=== PATIENT | female | born 1970 | race Caucasian/White ===

== ENCOUNTER → 2022-05-24 | Outpatient (CLI) | payer BC ==
--- NOTE | 2022-05-29 11:55 | MM ---
Reason for Exam: Screening (asymptomatic). Last mammogram was performed 1 year(s) and 2 month(s) ago. Patient History: Menarche at age 12. First Full-Term at age 23. Right ovary removed at age 47. Hysterectomy at age 39. Postmenopausal. Patient has history of breast feeding. Risk Values: Caryn 5 year model risk: 0.9%. NCI Lifetime model risk: 7.8%. Prior Study Comparison: 09/26/2010 Bilateral MG screening mammo w CAD - 2, [facility] [place]. 11/10/2011 Bilateral MG screening mammo w CAD - 2, [facility] [place]. 01/08/2013 Bilateral MG screening mammo w CAD - 2, [facility] [place]. 01/12/2014 Bilateral MG screening mammo w CAD - 2, [facility] [place]. 06/07/2015 Bilateral MG screening mammo w CAD - 2, [facility] [place] 07/17/2016 Bilateral MG screening mammo w CAD - 2, [facility] [place]. 10/02/2017 Bilateral MG screening mammo w CAD - 2, [facility] [place] 11/13/2018 Bilateral MG screening mammo w CAD - 2, [facility] [place]. 02/20/2020 Bilateral MG screening mammo w CAD - 2, [facility] [place]. 03/26/2021 Bilateral MG screening mammo w CAD - 2, [facility] [place]. Tissue Density: The breast tissue is heterogeneously dense. This may lower the sensitivity of mammography. Findings: Analyzed By CAD. Stable focal asymmetries within the upper outer right breast. Stable chronic nodularity within the posterior upper outer right breast. There is no suspicious group of microcalcifications or new suspicious mass in either breast. Overall Assessment: Benign, BI-RAD 2 Management: Screening Mammogram of both breasts in 1 year. A clinical breast exam by your physician is recommended on an annual basis and results should be correlated with mammographic findings. Electronically signed and approved by: Michael Mcclelland D.O.
== END | disposition home or self-care (01) ==
LOC: RADMAMWWP 15:43
PROVIDERS: ATTEND Family Medicine
DX: Z12.31 Encounter for screening mammogram for malignant neoplasm of breast (principal); Z78.0 Asymptomatic menopausal state
CPT/HCPCS: 77063; 77067

== ENCOUNTER → 2022-06-27 | Outpatient (CLI) | payer BC ==
[2022-06-27 13:27] VITALS: BP 121/77; PULSE 61; RESP 18; TEMP 98.1
--- NOTE | 2022-06-27 14:16 | P.HPOB ---
History of Present Illness H&P Date: 06/27/22 Chief Complaint: The patient is here for her routine gynecologic exam. This is a 52-year-old 012 with an LMP of 2010. The patient is here to establish with this office. She is status post vaginal hysterectomy in 2010 for benign reasons. She later had an appendectomy with RSO for ovarian torsion in 2017. It has been about 3 years since her last pelvic exam. She has been experiencing hot flashes that have gotten much worse during the past 1 month. She states they can be severe at times. They tend to be fairly short. She tends to experience them mostly at night. She is otherwise without gynecologic complaints. Review of Systems The patient has lost 34 pounds over the last year. Weight loss has been intentional with diet and exercise. She denies respiratory, cardiac, or G.I. problems. Past Medical History Past Medical History: Diabetes Mellitus, Hypertension Additional Past Medical History / Comment(s): Type 2 diabetes(diet controlled). PAST BREAD ROOM HAND HISTORY: She has no history of STDs. History of Any Multi-Drug Resistant Organisms: None Reported Past Surgical History: Appendectomy, Cholecystectomy, Hysterectomy Additional Past Surgical History / Comment(s): Vaginal HYSTERECTOMY 2010, R OVARY REMOVED with appendectomy 2016, right ectopic salpingotomy 1997. Colonoscopy 2017(3rd). Past Anesthesia/Blood Transfusion Reactions: No Reported Reaction Past Psychological History: Anxiety, Depression (She denies current depression.) Smoking Status: Never smoker Past Alcohol Use History: Rare (About 4 per year) Past Drug Use History: None Reported Additional History: She has been since 1991. 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 - Past Family History Mother Family Medical History: Cancer Additional Family Medical History / Comment(s): Colon cancer. Father Family Medical History: No Reported History Son(s) Family Medical History: Asthma Additional Family Medical History / Comment(s): Some degree of autism. Medications and Allergies Home Medications Medication Instructions Recorded Confirmed Type Atenolol/Chlorthalidone 1 cap PO DAILY 06/27/22 06/27/22 History [Atenolol/Chlorthalidone 50-25] Cholecalciferol [Vitamin D3 (25 25 mcg PO DAILY 06/27/22 06/27/22 History Mcg = 1000 Iu)] Multivitamin [Multivitamins Adult 1 cap PO DAILY 06/27/22 06/27/22 History Gummies] Allergies Allergy/AdvReac Type Severity Reaction Status Date / Time No Known Allergies Allergy Unverified 06/27/22 13:19 Exam Vital Signs Temp Pulse Resp BP Pulse Ox 06/27/22 13:20 98.1 F 61 18 121/77 100 Intake and Output 06/26/22 06/27/22 06/27/22 22:59 06:59 14:59 Other: Weight 101.605 kg Height 5 feet 10 inches, weight 224 pounds, BMI 32.1. This is a well-developed well-nourished white female who is alert and oriented times 3 in no acute distress. HEENT: Within normal limits. NECK: Supple without mass or thyromegaly. CHEST AND LUNGS: Clear to auscultation. HEART: Regular rate and rhythm. BREASTS: Are without mass or discharge. AXILLARY EXAM: Negative for adenopathy. BACK: Negative for CVA tenderness. ABDOMEN: Soft, nontender, without palpable masses. PELVIC EXAM: External genitalia appears normal. Vagina appears normal with minimal atrophy. There is no evidence of prolapse. Bimanual examination is negative for mass or tenderness. RECTAL EXAM: Rectovaginal exam is negative for mass or tenderness and is nega tive for occult blood. EXTREMITIES: Nontender. IMPRESSION: 1. 52-year-old premenopausal female status post vaginal hysterectomy and later RSO for benign reasons, with normal gynecologic exam. 2. Recent of vasomotor symptoms related to the menopausal change. PLAN: 1. Pap smears have been discontinued. 2. Self breast awareness was discussed with the patient. We have also discussed symptoms associated with inflammatory breast cancer. 3. Screening mammogram done on 05/24/2022 was benign. 4. Osteoporosis prevention was discussed. I have stressed the importance of adequate calcium, vitamin D and regular exercise. Recommended amounts of calcium and vitamin D were also discussed. 5. She has completed her Clomid vaccination series and has received a bolster. 6. We have had a discussion regarding menopausal symptoms. At this time they seem tolerable. We will try to go without HRT or prescription medications. Suggestions for the hot flashes were given to the patient. She will call to be seen if they are getting severe enough where she thinks treatment is indicated. We have discussed HRT with possible risks including possible increased risk for stroke and blood clots. 7. She was advised to return in one year for her annual well woman exam and as needed.
== END ==
LOC: WWCWWP 13:01
PROVIDERS: ATTEND Obstetrics & Gynecology
DX: Z01.419 Encounter for gynecological examination (general) (routine) without abnormal findings (principal); E11.9 Type 2 diabetes mellitus without complications; I10 Essential (primary) hypertension; F41.9 Anxiety disorder, unspecified; Z90.710 Acquired absence of both cervix and uterus; Z90.721 Acquired absence of ovaries, unilateral

== ENCOUNTER → 2023-06-26 | Outpatient (CLI) | payer BC ==
--- NOTE | 2023-06-26 14:04 | MM ---
Reason for Exam: Additional evaluation requested from abnormal screening. Last screening mammogram was performed less than 1 month ago. Patient History: Menarche at age 12. First Full-Term at age 23. Right ovary removed at age 47. Hysterectomy at age 39. Postmenopausal. Patient has history of breast feeding. Risk Values: Caryn 5 year model risk: 1.0%. NCI Lifetime model risk: 7.7%. Prior Study Comparison: 05/24/2022 Bilateral MG 3D screening mammo w/cad, [facility]. 06/13/2023 Bilateral MG 3D screening mammo w/cad, [facility]. Tissue Density: There are scattered fibroglandular densities. Findings: Analyzed By CAD. Calcifications within both breasts. No suspicious group of calcifications within either breast. Focal asymmetry within the left breast disperses with compression. Persistent focal asymmetry within the right breast in the upper outer quadrant at middle to posterior depth. Overall Assessment: Incomplete: need additional imaging evaluation, BI-RAD 0 Management: Diagnostic Breast Ultrasound of the right breast. A clinical breast exam by your physician is recommended on an annual basis and results should be correlated with mammographic findings. This exam should not preclude additional follow-up of suspicious palpable abnormalities. Results were given to the patient verbally at the time of exam. Note on Caryn scores and lifetime risk: 1. A Caryn score greater than 3% is considered moderate risk. If this is the case, consider specialist referral to assess eligibility for a risk reducing agent. If overall lifetime risk for the development of breast cancer is 20% or higher, the patient may qualify for future screening with alternating mammogram and breast MRI. Electronically signed and approved by: Michael Mcclelland D.O.
--- NOTE | 2023-06-26 14:40 | USB ---
Reason for Exam: Additional evaluation requested from abnormal screening. Patient History: Menarche at age 12. First Full-Term at age 23. Right ovary removed at age 47. Hysterectomy at age 39. Postmenopausal. Patient has history of breast feeding. Risk Values: Caryn 5 year model risk: 1.0%. NCI Lifetime model risk: 7.7%. Technique: Method: Targeted. Patient Position: Supine. Prior Study Comparison: 03/26/2021 Bilateral MG screening mammo w CAD - 2, [facility] [place]. 05/24/2022 Bilateral MG 3D screening mammo w/cad, [facility]. 06/13/2023 Bilateral MG 3D screening mammo w/cad, [facility]. Findings: The upper outer quadrant of the right breast was scanned. Targeted ultrasound the right breast from 9-12 o'clock was performed. There is a thin-walled cyst in the right breast at 10:00 12 cm from the nipple measuring 2.0 x 1.7 x 0.6 cm. Benign intramammary lymph node identified without thickened cortex in the right breast at 10:00 12 cm from the nipple measuring 0.7 x 0.3 x 0.5 cm. This correlates to mammographic findings. Overall Assessment: Benign, BI-RAD 2 Management: Screening Mammogram of both breasts in 1 year. A clinical breast exam by your physician is recommended on an annual basis and results should be correlated with mammographic findings. This exam should not preclude additional follow-up of suspicious palpable abnormalities. Results were given to the patient verbally at the time of exam. Electronically signed and approved by: Michael Mcclelland D.O.
== END | disposition home or self-care (01) ==
LOC: RADMAMWWP 13:33
PROVIDERS: ATTEND Family Medicine
DX: R92.1 Mammographic calcification found on diagnostic imaging of breast (principal); R92.323 Mammographic fibroglandular density, bilateral breasts; Z78.0 Asymptomatic menopausal state; N60.01 Solitary cyst of right breast
CPT/HCPCS: 77062; 77066

== ENCOUNTER → 2024-07-01 | Outpatient (CLI) | payer BC ==
--- NOTE | 2024-07-02 08:19 | MM ---
Reason for Exam: Screening (asymptomatic). Last screening mammogram was performed 12 month(s) ago. Patient History: Menarche at age 12. First Full-Term at age 23. Right ovary removed at age 47. Hysterectomy at age 39. Postmenopausal. Patient has history of breast feeding. Maternal grandmother had ovarian cancer under age 50. Risk Values: Caryn 5 year model risk: 1.0%. NCI Lifetime model risk: 7.5%. Prior Study Comparison: 05/24/2022 Bilateral MG 3D screening mammo w/cad, [facility]. 06/13/2023 Bilateral MG 3D screening mammo w/cad, [facility]. 06/26/2023 Bilateral MG 3D work up w/cad [facility]. Tissue Density: There are scattered areas of fibroglandular density. Findings: Analyzed By CAD. Right breast: There is no suspicious group of microcalcifications or new suspicious mass. Benign-appearing calcifications right breast. Left breast: There is no suspicious group of microcalcifications or new suspicious mass. Benign-appearing calcifications left breast. Overall Assessment: Benign, BI-RAD 2 Management: Screening Mammogram of both breasts in [address] [facility] will attempt to contact patient to return for supplemental views and ultrasound if indicated. Patient should continue monthly self-breast exams. A clinical breast exam by your physician is recommended on an annual basis. This exam should not preclude additional follow-up of suspicious palpable abnormalities. Note on Caryn scores and lifetime risk: 1. A Caryn score greater than 3% is considered moderate risk. If this is the case, consider specialist referral to assess eligibility for a risk reducing agent. 2. If overall lifetime risk for the development of breast cancer is 20% or higher, the patient may qualify for future screening with alternating mammogram and breast MRI. [facility], , 07/02/2024 8:14 AM. Electronically signed and approved by: Pankaj Gilbert DO
== END | disposition home or self-care (01) ==
LOC: RADMAMWWP 16:22
PROVIDERS: ATTEND Obstetrics & Gynecology
CPT/HCPCS: 77063; 77067